=== PATIENT | female | born 1940 | race Caucasian/White ===

== ENCOUNTER → 2017-08-17 | Outpatient (CLI) | payer MEDICARE, BC ==
[~2017-08-17] MED LIST: ACET325; ACET325 PO; ACET500; ALBU90OI6 INH; ALEN70 PO; AMLO10/10 PO; AMLO5 PO; ANAS1 PO; ASCORBIC ACID; ATOR10; AZIT250 PO; AZIT500 PO; BASAGLAR K100 UNIT/1 SC; BENZ100A PO; CALCAVITDA PO; CALCIT950 PO; CALMAGZIN; CARV25 PO; CARV6.25; CEPH500 PO; CIPR250 PO; CODGUAEL PO; CRANBERRY; Cleocin HCl300 MG PO; DIGO.125; DISO150; FENO54; FLUT1DIS5 INH; FURO20 PO; FURO40; FURO40 PO; GLIP10; GLIP5; GLIP5ER; GLUC500 PO; GLUCHON; HYDMOR2; IBUP800 PO; INSLI100I; INSU100I6 SC; INSULANI; INSULANI SUBQ; INSULANPEN; K-TAB ER20 MEQ PO; Keflex500 MG PO; LANOXIN125 MCG PO; LISI20; LOPE2C PO; LOPE2EL; LOSA50 PO; LOSARTAN POTAS100 MG PO; METF850; Macrobid 100 M100 MG PO; OMEPRAZOLE MAGN20 MG PO; OXYACE5T PO; POTASSIUM OTC 99MG; POTCHL10ER PO; RISE35 PO; RISE5 PO; SIMV40 PO; SPIR25; SULTRIDS PO; Simvastatin40 MG PO; TIOT18 INH; TRAM50 PO; Ultram50 MG PO; VALS80; VERA240ER; WARF3 PO; WARF4; WARF6; XARELTO20 MG PO; Zithromax250 MG PO; [UNRECOGNIZED DRUG - OTHER]
== END ==
LOC: LAB EV 14:54
DX: R10.2 Pelvic and perineal pain (principal)
CPT/HCPCS: 87070; 87077; 87186; 87205

== ENCOUNTER → 2017-09-28 | Outpatient (CLI) | payer MEDICARE, BC | END | disposition home or self-care (01) | LOC: LAB EV 12:17 | DX: R30.0 Dysuria (principal) | CPT/HCPCS: 87077; 87086; 87186 ==

== ENCOUNTER 2018-01-17 09:38 | Emergency (ER) | payer MEDICARE, BC ==
[~2018-01-17] VITALS: Ht 160 cm; Wt 108.9 kg
[~2018-01-17 09:38] MED LIST changes: -ACET325 PO; -BASAGLAR K100 UNIT/1 SC; -POTCHL10ER PO
[2018-01-17 11:34] LABS: BASOPHILS ABSOLUTE AUTO 0.02 K/mm3 (0.00-0.23); BASOPHILS PERCENT AUTO 0 % (0-2); EOSINOPHILS PERCENT AUTO 3 % (0-6); Hematocrit 41.5 % (33.0-51.0); IMMATURE GRAN ABSOLUTE AUTO 0.07 K/mm3 (0.00-0.10); IMMATURE GRAN PERCENT AUTO 1 % (0-1); LYMPHOCYTES PERCENT AUTO 20 % (21-46); MONOCYTES ABSOLUTE AUTO 0.68 K/mm3 (0.16-1.47); MONOCYTES PERCENT AUTO 11 % (4-13); Mean Corpuscular HGB 33.4 pg (26.0-34.0); Mean Corpuscular HGB Conc 33.7 g/dL (31.5-36.5); Mean Corpuscular Volume 99 fL (80-100); Mean Platelet Volume 9.6 fL (9.1-12.4); NEUTROPHILS ABSOLUTE AUTO 4.15 K/mm3 (1.96-9.15); NEUTROPHILS PERCENT AUTO 65 % (41-73); Platelet Count 217 K/mm3 (150-400); RDW Coefficient Variation 12.4 % (11.7-14.2); RDW Standard Deviation 45.2 fL (35.1-46.3); Red Blood Cell Count 4.19 M/mm3 (3.80-5.20); White Blood Cell Count 6.42 K/mm3 (4.00-11.30)
[2018-01-17 11:50] LABS: Albumin, Blood 3.4 g/dL (3.4-5.0); Albumin/Globulin Ratio 0.8 (0.8-1.8); Bilirubin, Total 0.7 mg/dL (0.1-1.0); Bun/Creatinine Ratio 20.6 (12.0-20.0); Calcium, Blood 8.9 mg/dL (8.5-10.1); Creatinine, Blood 1.07 mg/dL (0.40-1.00); Globulin, Blood 4.2 g/dL (2.2-4.0); Potassium, Blood 4.4 mmol/L (3.5-5.5); Total Protein, Blood 7.6 g/dL (6.4-8.2)
[2018-01-17] MEDS ORDERED: POTCHL10ER PO (14:00)
[2018-01-17] MEDS ORDERED: FURO20 PO (14:02)
[2018-01-17] MEDS ORDERED: ACET325 PO (14:03)
[2018-01-17] MEDS ORDERED: BASAGLAR K100 UNIT/1 SC (14:09)
[2018-01-17 14:12] LABS: Source, Urine Clean Catch
[2018-01-17 14:20] LABS: Bilirubin, Urine Neg (Neg); Blood, Urine 2+ (Neg); Glucose Qualitative, Urine Neg (Neg); Ketones, Urine 2+ (Neg); Leukocyte Esterase, Urine 2+ (Neg); Nitrite, Urine Pos (Neg); Protein, Urine 1+ (Neg); Specific Gravity, Urine 1.015 (1.003-1.022); Urobilinogen, Urine NORM (Normal)
[2018-01-17 14:31] LABS: Appearance, Urine Clear (Clear); Color, Urine Yellow (P-Yellow)
[2018-01-17 14:35] LABS: Bacteria Mod /hpf; Squamous Epithelial Cells Few /hpf (Few); White Blood Cells, Urine 50-100 /hpf (0-5)
[2018-01-17 15:44] LABS: Adenovirus F 40/41 Not Detected (NOT DETECT); Astrovirus Not Detected (NOT DETECT); Cryptosporidium Not Detected (NOT DETECT); Cyclospora Cayetanensis Not Detected (NOT DETECT); E. Coli O157 Not Detected (NOT DETECT); Entamoeba Histolytica Not Detected (NOT DETECT); Enteroaggregative E. coli-EAEC Not Detected (NOT DETECT); Enteropathogenic E. coli-EPEC Not Detected (NOT DETECT); Enterotoxigenic E. coli-ETEC Not Detected (NOT DETECT); Giardia Lamblia Not Detected (NOT DETECT); Norovirus GI/GII Not Detected (NOT DETECT); Plesiomonas Shigelloides Not Detected (NOT DETECT); Rotavirus A Not Detected (NOT DETECT); Salmonella Sp Not Detected (NOT DETECT); Sapovirus Not Detected (NOT DETECT); Shiga Toxin-prod E. coli-STEC Not Detected (NOT DETECT); Shigella/Enteroin E. coli-EIEC Not Detected (NOT DETECT); Vibrio Cholerae Not Detected (NOT DETECT); Vibrio Sp Not Detected (NOT DETECT); Yersinia Enterocolitica Not Detected (NOT DETECT)
[2018-01-17 17:49] LABS: Campylobacter Sp Detected (NOT DETECT)
[2018-01-17] MEDS ORDERED: Zithromax250 MG PO (17:55)
== END 2018-01-17 18:29 | disposition home or self-care (01) ==
LOC: ER 09:38
PROVIDERS: Emergency Medicine; Internal Medicine
DX: A04.5 Campylobacter enteritis (principal); Z88.8 Allergy status to other drugs, medicaments and biological substances; Z91.048 Other nonmedicinal substance allergy status; Z88.5 Allergy status to narcotic agent; Z88.0 Allergy status to penicillin; Z88.2 Allergy status to sulfonamides; Z79.899 Other long term (current) drug therapy; Z79.4 Long term (current) use of insulin; E11.9 Type 2 diabetes mellitus without complications; I48.91 Unspecified atrial fibrillation; I11.0 Hypertensive heart disease with heart failure; I50.32 Chronic diastolic (congestive) heart failure; J45.909 Unspecified asthma, uncomplicated; J44.9 Chronic obstructive pulmonary disease, unspecified; E78.5 Hyperlipidemia, unspecified; Z87.891 Personal history of nicotine dependence
CPT/HCPCS: 36415; 80053; 81001; 83690; 85025; 87077; 87086; 87186; 87507; 99283

== ENCOUNTER → 2018-08-15 | Outpatient (CLI) | payer MEDICARE, BC ==
[~2018-08-15] MED LIST changes: +ACET325 PO; +BASAGLAR K100 UNIT/1 SC; +POTCHL10ER PO
== END ==
LOC: LAB EV 14:32 → LAB SHORT 14:32
DX: N39.0 Urinary tract infection, site not specified (principal)
CPT/HCPCS: 87077; 87086; 87186

== ENCOUNTER → 2018-10-06 | Outpatient (CLI) | payer MEDICARE, BC | END | disposition home or self-care (01) | LOC: LAB SHORT 07:25 → PLD 07:25 | DX: C44.622 Squamous cell carcinoma of skin of right upper limb, including shoulder (principal) | CPT/HCPCS: 88305 ==

== ENCOUNTER → 2018-11-02 | Outpatient (CLI) | payer MEDICARE, BC | END | disposition home or self-care (01) | LOC: PLD 14:10 → LAB SHORT 14:10 | DX: C44.622 Squamous cell carcinoma of skin of right upper limb, including shoulder (principal) | CPT/HCPCS: 88305 ==

== ENCOUNTER → 2018-12-14 | Outpatient (CLI) | payer MEDICARE, BC | END | disposition home or self-care (01) | LOC: LAB SHORT 13:16 → LAB EV 13:16 | DX: R32 Unspecified urinary incontinence (principal) | CPT/HCPCS: 87077; 87086; 87186 ==

== ENCOUNTER → 2019-01-24 | Outpatient (CLI) | payer MEDICARE, BC | END | disposition home or self-care (01) | LOC: LAB SHORT 12:08 → PLD 12:08 | DX: D48.5 Neoplasm of uncertain behavior of skin (principal) | CPT/HCPCS: 88305 ==

== ENCOUNTER → 2019-01-27 | Outpatient (CLI) | payer MEDICARE, BC | END | disposition home or self-care (01) | LOC: LAB EV 17:06 → LAB SHORT 17:06 | DX: R31.9 Hematuria, unspecified (principal) | CPT/HCPCS: 87077; 87086; 87186 ==

== ENCOUNTER → 2020-12-30 | Outpatient (CLI) | payer MEDICARE, BC ==
[~2020-12-30] MED LIST changes: +CEFD300 PO
== END | disposition home or self-care (01) ==
LOC: LAB 08:16 → LAB SHORT 08:16
DX: C44.319 Basal cell carcinoma of skin of other parts of face (principal); L82.1 Other seborrheic keratosis
CPT/HCPCS: 88305

== ENCOUNTER → 2021-02-10 | Outpatient (CLI) | payer MEDICARE, BC | LOC: LAB 07:24 → LAB SHORT 07:24 | DX: C44.310 Basal cell carcinoma of skin of unspecified parts of face (principal); C44.319 Basal cell carcinoma of skin of other parts of face | CPT/HCPCS: 88305 ==

== ENCOUNTER → 2021-04-07 | Outpatient (CLI) | payer MEDICARE, BC | END | disposition home or self-care (01) | LOC: LAB SHORT 07:55 | DX: C44.319 Basal cell carcinoma of skin of other parts of face (principal); L90.5 Scar conditions and fibrosis of skin | CPT/HCPCS: 88305 ==

== ENCOUNTER 2021-10-21 14:42 | Emergency (ER) | payer MEDICARE, BC ==
[~2021-10-21] VITALS: Ht 154.9 cm; Wt 99.8 kg
[2021-10-21 15:24] LABS: BASOPHILS ABSOLUTE AUTO 0.03 K/mm3 (0.00-0.23); BASOPHILS PERCENT AUTO 0 % (0-2); EOSINOPHILS PERCENT AUTO 1 % (0-6); Hematocrit 49.8 % (33.0-51.0); Hemoglobin 15.5 g/dL (11.5-16.0); IMMATURE GRAN ABSOLUTE AUTO 0.02 K/mm3 (0.00-0.10); IMMATURE GRAN PERCENT AUTO 0 % (0-1); LYMPHOCYTES ABSOLUTE AUTO 1.02 K/mm3 (0.84-5.20); LYMPHOCYTES PERCENT AUTO 15 % (21-46); MONOCYTES ABSOLUTE AUTO 0.43 K/mm3 (0.16-1.47); MONOCYTES PERCENT AUTO 6 % (4-13); Mean Corpuscular HGB 32.6 pg (26.0-34.0); Mean Corpuscular HGB Conc 31.1 g/dL (31.5-36.5); Mean Corpuscular Volume 105 fL (80-100); Mean Platelet Volume 9.6 fL (9.1-12.4); NEUTROPHILS PERCENT AUTO 77 % (41-73); Platelet Count 174 K/mm3 (150-400); RDW Coefficient Variation 13.5 % (11.7-14.2); Red Blood Cell Count 4.75 M/mm3 (3.80-5.20)
[2021-10-21 15:46] LABS: Base Excess Venous 3.5 mmol/L; Bicarbonate Venous 27.7 mmol/L (24.0-30.0); PCO2 Venous 36.3 mmHg (38-42); pH Blood Venous 7.48 (7.34-7.37)
[2021-10-21 16:00] LABS: Albumin, Blood 3.1 g/dL (3.4-5.0); Albumin/Globulin Ratio 0.8 (0.8-1.8); Beta-hydroxybutyrate 3.1 mg/dL (0.2-2.8); Bilirubin, Total 0.6 mg/dL (0.1-1.0); Bun/Creatinine Ratio 25.8 (12.0-20.0); Calcium, Blood 9.4 mg/dL (8.5-10.1); Creatinine, Blood 0.93 mg/dL (0.40-1.00); Potassium, Blood 4.2 mmol/L (3.5-5.5); Total Protein, Blood 7.1 g/dL (6.4-8.2)
[2021-10-21 18:07] LABS: Source, Urine Clean Catch
[2021-10-21 18:10] LABS: Bilirubin, Urine Neg (Neg); Blood, Urine 5+ (Neg); Glucose Qualitative, Urine 3+ (Neg); Ketones, Urine Neg (Neg); Leukocyte Esterase, Urine 3+ (Neg); Nitrite, Urine Pos (Neg); Protein, Urine 2+ (Neg); Specific Gravity, Urine 1.015 (1.003-1.022); Urobilinogen, Urine NORM (Normal)
[2021-10-21 18:15] LABS: Appearance, Urine Hazy (Clear); Color, Urine Pale Yellow (P-Yellow)
[2021-10-21 18:18] LABS: Bacteria Many /hpf; Red Blood Cells, Urine 25-50 /hpf (0-2); Squamous Epithelial Cells Few /hpf (Few)
[2021-10-21 18:19] LABS: Mucus Light (0-Heavy); Yeast/Fungi Urine Rare /hpf
[2021-10-21] MEDS ORDERED: CEFD300 PO (18:34)
== END 2021-10-21 20:08 | disposition home or self-care (01) ==
LOC: ER 14:42
PROVIDERS: Physician Assistant
DX: E11.10 Type 2 diabetes mellitus with ketoacidosis without coma (principal); E11.65 Type 2 diabetes mellitus with hyperglycemia; N39.0 Urinary tract infection, site not specified; I11.0 Hypertensive heart disease with heart failure; I50.32 Chronic diastolic (congestive) heart failure; I48.91 Unspecified atrial fibrillation; E11.9 Type 2 diabetes mellitus without complications; E78.5 Hyperlipidemia, unspecified; J44.9 Chronic obstructive pulmonary disease, unspecified; Z87.891 Personal history of nicotine dependence; Z88.8 Allergy status to other drugs, medicaments and biological substances; Z91.048 Other nonmedicinal substance allergy status; Z88.0 Allergy status to penicillin; Z88.5 Allergy status to narcotic agent; Z88.2 Allergy status to sulfonamides; Z79.899 Other long term (current) drug therapy; Z79.4 Long term (current) use of insulin
CPT/HCPCS: 36415; 80053; 81001; 82010; 82803; 85025; 87077; 87086; 87186; 96374; 99284-25; J0696

== ENCOUNTER 2022-08-09 10:11 | Inpatient (IN) | payer MEDICARE, BC ==
[~2022-08-09] VITALS: Ht 154.9 cm; Wt 93.6 kg
[~2022-08-09 10:11] MED LIST changes: -INSU100I6 SC; +NOVOLOG FL100 UNIT/3 SC
[2022-08-09 11:21] LABS: Source, Urine Straight Cath
[2022-08-09 11:33] LABS: Appearance, Urine Cloudy (Clear); Bilirubin, Urine Neg (Neg); Blood, Urine 5+ (Neg); Color, Urine Yellow (P-Yellow); Glucose Qualitative, Urine 2+ (Neg); Ketones, Urine Neg (Neg); Leukocyte Esterase, Urine 3+ (Neg); Nitrite, Urine Neg (Neg); Protein, Urine 3+ (Neg); Urobilinogen, Urine NORM (Normal)
[2022-08-09 12:12] LABS: Bacteria Mod /hpf; Mucus Light (0-Heavy); Red Blood Cells, Urine TNTC /hpf (0-2); Squamous Epithelial Cells Few /hpf (Few); White Blood Cells, Urine TNTC /hpf (0-5)
[2022-08-09 12:34] LABS: C-REACTIVE PROTEIN, EXT RANGE 16.7 mg/dL (0.000-0.300)
[2022-08-09 12:36] LABS: Albumin, Blood 2.7 g/dL (3.4-5.0); Albumin/Globulin Ratio 0.6 (0.8-1.8); Bilirubin, Total 0.6 mg/dL (0.1-1.0); Bun/Creatinine Ratio 39.7 (12.0-20.0); Calcium, Blood 9.3 mg/dL (8.5-10.1); Creatinine, Blood 1.56 mg/dL (0.40-1.00); Globulin, Blood 4.2 g/dL (2.2-4.0); Potassium, Blood 5.1 mmol/L (3.5-5.5); Total Protein, Blood 6.9 g/dL (6.4-8.2)
[2022-08-09 12:42] LABS: BASOPHILS ABSOLUTE AUTO 0.03 K/mm3 (0.00-0.23); BASOPHILS PERCENT AUTO 0 % (0-2); EOSINOPHILS ABSOLUTE AUTO 0.02 K/mm3 (0.00-0.68); EOSINOPHILS PERCENT AUTO 0 % (0-6); Hematocrit 49.9 % (33.0-51.0); Hemoglobin 15.7 g/dL (11.5-16.0); IMMATURE GRAN ABSOLUTE AUTO 0.15 K/mm3 (0.00-0.10); IMMATURE GRAN PERCENT AUTO 1 % (0-1); LYMPHOCYTES ABSOLUTE AUTO 0.44 K/mm3 (0.84-5.20); LYMPHOCYTES PERCENT AUTO 4 % (21-46); MONOCYTES ABSOLUTE AUTO 0.53 K/mm3 (0.16-1.47); MONOCYTES PERCENT AUTO 4 % (4-13); Mean Corpuscular HGB Conc 31.5 g/dL (31.5-36.5); Mean Corpuscular Volume 99 fL (80-100); Mean Platelet Volume 10.7 fL (9.1-12.4); NEUTROPHILS ABSOLUTE AUTO 10.81 K/mm3 (1.96-9.15); NEUTROPHILS PERCENT AUTO 90 % (41-73); NRBC ABSOLUTE 0.07 K/mm3 (0.00-0.02); NRBC Auto 0.6 /100 WBC (0.0-0.2); Platelet Count 115 K/mm3 (150-400); RDW Coefficient Variation 14.3 % (11.7-14.2); RDW Standard Deviation 50.5 fL (35.1-46.3); Red Blood Cell Count 5.06 M/mm3 (3.80-5.20); White Blood Cell Count 11.98 K/mm3 (4.00-11.30)
--- NOTE | 2022-08-09 18:56 | NUR ---
ADMISSION/SHIFT SUMMARY: PT ADMITTED TO PCU AT APPROX 1620, ARRIVES A&Ox4, ANSWERS QUESTIONS APPROPRIATELY, COOPERATIVE W/CARE. O2 SATS >92% ON RA, DENIES SOB. AFIB ON MONITOR W/RATE 110s-120s, CARDIZEM INFUSING AT 10MG/HR, PT DENIES CHEST PAIN/PRESSURE. PT REPORTS INCONTINENCE AT BASELINE, ATTENDS IN PLACE AND WILL BE CHANGED NEEDED. PT WITH EXTENSIVE WOUNDS TO BLE AND L HEEL. WOUNDS HAVE BEEN CLEANED AND DRESSED, PICTURES TAKEN, WOUND CONSULTATION ORDERED. WILL CONTINUE TO MONITOR AND TREAT ACCORDINGLY UNTIL CHANGE OF SHIFT.
--- NOTE | 2022-08-10 05:52 | NUR ---
PT RESTED INTERMITTENTLY, PURWICK PLACED AND DID WELL, VSS, AFEBRILE, CARDIZEM AT 10 AND PT AFIB ON TELE IN 80'S-90'S, LABS PENDING
[2022-08-10 07:07] LABS: Albumin, Blood 2.1 g/dL (3.4-5.0); Anion Gap 9 mmol/L (6-16); Blood Urea Nitrogen 53 mg/dL (8-24); Bun/Creatinine Ratio 44.5 (12.0-20.0); CO2, Blood 20 mmol/L (21-32); Calcium, Blood 8.5 mg/dL (8.5-10.1); Chloride, Blood 108 mmol/L (98-108); Creatinine, Blood 1.19 mg/dL (0.40-1.00); Glomerular Filtration Rate 46 (60-); Glucose, Blood 176 mg/dL (70-99); Phosphorus, Blood 2.8 mg/dL (2.5-4.9); Sodium, Blood 137 mmol/L (136-145); Vancomycin, Random 10.3 ug/mL
--- NOTE | 2022-08-10 10:15 | NUR ---
UPDATE HR SUSTAINING 80'S. CARDIZEM GTT DISCONTINUED AT THIS TIME. BP STABLE. WILL CONTINUE TO MONITOR
[2022-08-10 11:14] LABS: BASOPHILS ABSOLUTE AUTO 0.01 K/mm3 (0.00-0.23); BASOPHILS PERCENT AUTO 0 % (0-2); EOSINOPHILS PERCENT AUTO 1 % (0-6); Hematocrit 41.4 % (33.0-51.0); Hemoglobin 13.2 g/dL (11.5-16.0); IMMATURE GRAN ABSOLUTE AUTO 0.08 K/mm3 (0.00-0.10); IMMATURE GRAN PERCENT AUTO 1 % (0-1); LYMPHOCYTES ABSOLUTE AUTO 0.49 K/mm3 (0.84-5.20); LYMPHOCYTES PERCENT AUTO 4 % (21-46); MONOCYTES ABSOLUTE AUTO 0.51 K/mm3 (0.16-1.47); MONOCYTES PERCENT AUTO 5 % (4-13); Mean Corpuscular HGB 31.6 pg (26.0-34.0); Mean Corpuscular HGB Conc 31.9 g/dL (31.5-36.5); Mean Corpuscular Volume 99 fL (80-100); Mean Platelet Volume 11.4 fL (9.1-12.4); NEUTROPHILS PERCENT AUTO 89 % (41-73); NRBC ABSOLUTE 0.05 K/mm3 (0.00-0.02); NRBC Auto 0.5 /100 WBC (0.0-0.2); Platelet Count 99 K/mm3 (150-400); RDW Coefficient Variation 14.4 % (11.7-14.2); RDW Standard Deviation 51.1 fL (35.1-46.3); Red Blood Cell Count 4.18 M/mm3 (3.80-5.20); White Blood Cell Count 11.09 K/mm3 (4.00-11.30)
--- NOTE | 2022-08-10 16:31 | NUR ---
UPDATE PT REMAINS ALERT AND ORIENTED. HR CONTINUES TO BE AFIB WITH A RATE IN THE 70'S. BP STABLE. O2 SATS REMAIN ABOVE 90% ON RA. PT COMPLAINS OF PAIN TO THE RIGHT HEEL. MEDICATED PER EMAR. PT AWAITING WOUND CARE CONSULT FOR EXTENSIVE WOUNDS. STATUS CHANGED TO MEDICAL. REPORT GIVEN TO BRANDON REDDY. PT TAKEN UP BY BED
--- NOTE | 2022-08-10 17:06 | NUR ---
PT UP FROM PCU 18. PT ON TELE, COMFIRMED WITH ARABELLA GUARDADO 80'S. PT ALERT AND ORIENTED, CALLS APPROPRIATELY. WOUNDS TO BLE, BUTT, ALREADY DOCUMENTED, PENDING WOUND CARE CONSULT. PT ON RA, SPO2 > 92%. WILL CONTINUE TO MONITOR. CALL LIGHT WITHIN REACH.
[2022-08-11 06:23] LABS: Bun/Creatinine Ratio 40.7 (12.0-20.0); Calcium, Blood 8.8 mg/dL (8.5-10.1); Creatinine, Blood 1.4 mg/dL (0.40-1.00); Potassium, Blood 4.5 mmol/L (3.5-5.5)
--- NOTE | 2022-08-11 06:33 | NUR ---
END OF SHIFT REPORT Patient had a pleasant night with no acute events. Wound care done bilateral legs, cleaned with NS, patted dry, xeroform gauze dressing applied, ABD dressing applied and secured with roling gauze and wrapped with compression dressing. Wound care done bilateral buttocks and covered with mepilex. Interminent wheezing through the shift, hx of asthma. Cleared with breathing TX. Pericare done, bed linean and purewick changed.
[2022-08-11 09:26] LABS: BASOPHILS ABSOLUTE AUTO 0.02 K/mm3 (0.00-0.23); BASOPHILS PERCENT AUTO 0 % (0-2); EOSINOPHILS ABSOLUTE AUTO 0.08 K/mm3 (0.00-0.68); EOSINOPHILS PERCENT AUTO 1 % (0-6); Hematocrit 42.7 % (33.0-51.0); Hemoglobin 13.6 g/dL (11.5-16.0); IMMATURE GRAN ABSOLUTE AUTO 0.07 K/mm3 (0.00-0.10); IMMATURE GRAN PERCENT AUTO 1 % (0-1); LYMPHOCYTES ABSOLUTE AUTO 0.69 K/mm3 (0.84-5.20); LYMPHOCYTES PERCENT AUTO 7 % (21-46); MONOCYTES ABSOLUTE AUTO 0.48 K/mm3 (0.16-1.47); MONOCYTES PERCENT AUTO 5 % (4-13); Mean Corpuscular HGB 31.3 pg (26.0-34.0); Mean Corpuscular HGB Conc 31.9 g/dL (31.5-36.5); Mean Corpuscular Volume 98 fL (80-100); Mean Platelet Volume 10.8 fL (9.1-12.4); NEUTROPHILS ABSOLUTE AUTO 9.13 K/mm3 (1.96-9.15); NEUTROPHILS PERCENT AUTO 87 % (41-73); NRBC ABSOLUTE 0.06 K/mm3 (0.00-0.02); NRBC Auto 0.6 /100 WBC (0.0-0.2); Platelet Count 89 K/mm3 (150-400); RDW Coefficient Variation 14.5 % (11.7-14.2); RDW Standard Deviation 51.5 fL (35.1-46.3); Red Blood Cell Count 4.34 M/mm3 (3.80-5.20); White Blood Cell Count 10.47 K/mm3 (4.00-11.30)
[2022-08-11 10:52] LABS: Anti-Xa UFH, PHA Monitoring <0.10 IU/mL; International Normalized Ratio 1.17; Prothrombin Time Results 12.2 Sec (9.7-11.5)
--- NOTE | 2022-08-11 17:05 | NUR ---
WOUND CARE ON INITIAL ASSESSMENT LLE APPEARS ISCHEMIC. LLE IS COLD TO TOUCH, BLUE-PURPLE WITH NONPALPABLE PULSES. PRIMARY RN AND MD NOTIFIED. IR AND PODIATRY CONSULTS ORDERED. BLE LEFT DESKIDDING MACHINE OPERATOR FOR FURTHER ASSESSMENT.
--- NOTE | 2022-08-11 18:31 | NUR ---
SHIFT SUMMARY PATIENT IS ALERT AND ORIENTED BUT CONFUSED. PATIENTS LEFT LOWER EXTREMITY IS COOL TO TOUCH AND HAS MULTIPLE WOUNDS THAT ARE BEING FOLLOWED BY WOUND CARE, IR, AND PODIATRY. PATIENT IS PLANNING ON HAVING AN ANGIO DONE TONIGHT AND WILL BE TRANSFERRING TO PCU AFTERWARDS. PATIENT HAS COMPLAINED OF PAIN AND MEDICATED PER EMAR. PATIENT HAS NOT COMPLAINED OF NAUSEA, SOB OR VOMITTING THIS SHIFT. VITAL SIGNS REVIEWED. BED IN LOWEST AND LOCKED POSITION. CALL LIGHT IN PLACE. WILL MONITOR UNTIL SHIFT CHANGE.
--- NOTE | 2022-08-11 23:38 | NUR ---
ASSUMED CARE NOTE: ASSUMED CARE OF PT AT 2119, PT IS ALERT AND ORIENTED TO SELF, FAMILY/PLACE/YEAR AND FOLLOWING COMMANDS. PT DISORIENTED TO TIME/MONTH. PT C/O PAIN TO BLE, 25MCG OF FENTANYL GIVEN PER SEP. AFTER FENTANYL ADMIN, PT BREATHING BECAME SHALLOW, SpO2 DROPPED TO 70%, PT PLACED ON NON-REABREATHER AT 10L, SpO2 ABOVE 90% FENTANYL EFFECTS LASTED FOR 15 MINUTES, PT NOW CRYING, STATING SHE IS IN PAIN 05/04. PT NOW ON 10l VIA OXYMIZER. SHEATH IN PLACE TO RIGHT GROIN , HEPARIN INFUSING AT 6ML/HR PER ORDER, TPA ALSO INFUSING AT 1MG/HR TO SHEATH ORDERED. RIGHT PEDAL PULSE FOUND WITH DOPPLER, NO PULSE NOTED TO LEFT POST-TIBIAL OR PEDAL. PT IN AFIB WITH HR IN THE 90'S. PUREWICK IN PLACE TO SUCTION. TO LOW 100'S, BP STABLE.
--- NOTE | 2022-08-12 00:57 | NUR ---
UPDATE: PT YELLING OUT IN PAIN, STS " HELP ME OR LET ME , I SHOULD HAVE NEVER AGREED TO THIS" PT STS SHE IS HAVING 10/10 PAIN TO BLE. CALLED REGARDING PAIN MEDICATION, ORDERS FOR DILAUDID X 4 DOSES GIVEN. BILATERAL PULSES CANNOT BE FOUND TO BLE, MADE AWARE NO NEW ORDERS GIVEN.
[2022-08-12 04:21] LABS: Source, Urine Foley catheter
[2022-08-12 04:23] LABS: Bilirubin, Urine Neg (Neg); Blood, Urine 5+ (Neg); Glucose Qualitative, Urine Neg (Neg); Ketones, Urine Neg (Neg); Leukocyte Esterase, Urine 3+ (Neg); Nitrite, Urine Neg (Neg); Protein, Urine 2+ (Neg); Specific Gravity, Urine 1.015 (1.003-1.022); Urobilinogen, Urine NORM (Normal)
[2022-08-12 04:44] LABS: Appearance, Urine Hazy (Clear); Color, Urine Yellow (P-Yellow)
[2022-08-12 04:46] LABS: Red Blood Cells, Urine 25-50 /hpf (0-2)
[2022-08-12 04:47] LABS: Bacteria Many /hpf; Granular Casts 0-2 /lpf (0); Hyaline Casts 0-2 /lpf (0-2); Mucus Light (0-Heavy); Squamous Epithelial Cells Few /hpf (Few); White Blood Cells, Urine TNTC /hpf (0-5)
[2022-08-12 05:36] LABS: BASOPHILS ABSOLUTE AUTO 0.05 K/mm3 (0.00-0.23); BASOPHILS PERCENT AUTO 0 % (0-2); EOSINOPHILS ABSOLUTE AUTO 0.04 K/mm3 (0.00-0.68); EOSINOPHILS PERCENT AUTO 0 % (0-6); Hematocrit 42.5 % (33.0-51.0); Hemoglobin 13.2 g/dL (11.5-16.0); IMMATURE GRAN ABSOLUTE AUTO 0.15 K/mm3 (0.00-0.10); IMMATURE GRAN PERCENT AUTO 1 % (0-1); LYMPHOCYTES ABSOLUTE AUTO 0.51 K/mm3 (0.84-5.20); LYMPHOCYTES PERCENT AUTO 3 % (21-46); MONOCYTES ABSOLUTE AUTO 0.53 K/mm3 (0.16-1.47); MONOCYTES PERCENT AUTO 3 % (4-13); Mean Corpuscular HGB 31.3 pg (26.0-34.0); Mean Corpuscular HGB Conc 31.1 g/dL (31.5-36.5); Mean Corpuscular Volume 101 fL (80-100); NEUTROPHILS ABSOLUTE AUTO 14.57 K/mm3 (1.96-9.15); NEUTROPHILS PERCENT AUTO 92 % (41-73); NRBC ABSOLUTE 0.13 K/mm3 (0.00-0.02); NRBC Auto 0.8 /100 WBC (0.0-0.2); Platelet Count 105 K/mm3 (150-400); RDW Coefficient Variation 14.5 % (11.7-14.2); RDW Standard Deviation 52.7 fL (35.1-46.3); Red Blood Cell Count 4.22 M/mm3 (3.80-5.20); White Blood Cell Count 15.85 K/mm3 (4.00-11.30)
[2022-08-12 05:47] LABS: Albumin, Blood 1.9 g/dL (3.4-5.0); Albumin/Globulin Ratio 0.6 (0.8-1.8); Bilirubin, Total 0.3 mg/dL (0.1-1.0); Bun/Creatinine Ratio 40.9 (12.0-20.0); Creatinine, Blood 1.32 mg/dL (0.40-1.00); Globulin, Blood 3.3 g/dL (2.2-4.0); Potassium, Blood 4.7 mmol/L (3.5-5.5); Total Protein, Blood 5.2 g/dL (6.4-8.2)
--- NOTE | 2022-08-12 05:47 | NUR ---
SHIFT SUMMARY: SEE PREBIOUS NOTES PT DROWSY, OPENS EYES TO VERBAL STIMULI. PT C/O PAIN T/O SHIFT TO BLE, DILAUDID GIVEN PER MAR WITH GOOD EFFECT. PT IS CONFUSED MAMIE SENSTATION TO BLE FOR THE LAST FEW HOURS. PT REMAINS ON 8L OF 02 VIA OXYMIXER WITH SPO2 ABOVE 90% , NASAL SPO2 PROBE IN PLACE, REPOSITONED Q 1 HR, UNABLE TO USE FINGER PROBE DUE TO POOR PERFUSION. RR IN THE MID 20'S .PT HAS BEEN IN AFIB WITH HR BETWEEN 90 TO LOW 100'S. PT REMAINS AFEBRILE. BARRON PLACED DUE TO URINARY RETENTION, 300ML OF URINE OUTPUT NOTED, HAZY WITH SEDIMENT NOTED. BILATERAL SOFT WRIST RESTRAINTS IN PLACE DUE TO PT PULLING ON ESSENTIAL LINES. TPA RUNNING TO SHEATH RIGHT GROIN AT 1MG/HR VIA INFUSION EXTENSION TUBING. HEPARIN INFUSING AT 6ML/HR DIRECTLY TO SHEATH IN THE RIGHT GROIN. RIGHT GROIN INSERTION SITE IS FREE FROM OOZING, HEMATOMA. NO PULSES CAN BE FOUND VIA DOPPLER TO BLE, MD AWARE. POOR CAP REFILL TO BLE. BED AT LOWEST LEVEL, WILL CONTINUE WITH PLAN OF CARE UNTIL REPORT IS GIVEN TO ONCOMING SHIFT.
--- NOTE | 2022-08-12 07:37 | NUR ---
CARE OF PT ASSUMED AT 0700, BEDSIDE REPORT TAKEN. PT SLEEPING, AROUSES TO VOICE, ABLE TO STATE NAME, PLACE, AND . FALLS ASLEEP INBETWEEN QUESTIONS. PT SUPINE FOR ART SHEATH TO RIGHT FEM ART. CATHFLO INFUSING TO SHEATH AT 1MG/HR, HEPARIN TO SIDE PORT AT 6MLS/HR. PULSES ABSENT BILAT TO DP/PT. OPEN WOUNDS/ULCERS TO BILAT LEGS; SEE PICS. LEFT LEG WOUNDS FOUL SMELLING. PT TO RETURN TO BAG MACHINE HELPER THIS AM. BARRON CATH DRAINING PURULENT URINE. PT IN AFIB W CONTROLLED RATE; HEPARIN GTT TO RETURN TO THERAPUTIC DOSE AFTER BAG MACHINE HELPER PER PHARMACIST FOR AFIB. PT IN RESTRAINTS D/T FORGETFULNESS, OCCASIONALLY WILL PULL ON LINES,; RESTRAINTS PLACED TO KEEP PT FROM PULLING ON ART SHEATH, PT UNDERSTANDS REASONS FOR RESTRAINTS AND IS OKAY WITH THEM. PT C/O PAIN TO LEGS BUT CAN NOT GIVE NUMBER, PT SLEEPING UNLESS WOKEN UP.
[2022-08-12 07:43] LABS: Vancomycin, Trough 18.6 ug/mL (5.0-10.0)
--- NOTE | 2022-08-12 08:05 | NUR ---
DR RODRIGUEZ IN TO SEE PT, CATHFLO TO CONTINUE, PT TO GO TO DINING MANAGER THIS AM PER DR RODRIGUEZ.
--- NOTE | 2022-08-12 14:52 | NUR ---
TERMINAL GAUGER SUPERVISOR CALLED TO GIVE UPDATE AND OBTAIN ETA FOR PROCEDURE; PT REMAINS W/O PULSES BILAT DP/PT. WHITE/PALLOR INCREASING TO LEFT TOES AND UPPER PORTION OF FOOT. AREA OUTLINED W PEN. HEPARIN AND CATHFLO CONTINUE TO INFUSE. SHEATH INTACT. ESTIMATE FOR TERMINAL GAUGER SUPERVISOR GIVEN FOR 1800. PT GIVEN CHG BEDBATH, PT LOG ROLLED FOR BATH. MEPILEX CHANGED TO BUTTOCKS, AREA EXCORIATED WITH PEELING SKIN/OPEN SORES. SMALL AMT OF DRAINAGE AND BLEEDING TO AREA. WOUNDS TO LEGS UNCHANGED.
--- NOTE | 2022-08-12 16:06 | NUR ---
DR COHEN CALLED FOR HEART RATE. PT IN AFIB, RATE HAS BEEN TRENDING UP T/O SHIFT, RATE NOW BETWEEN 120-130, OCC 140'S. BP STABLE, IV LOPRESSOR TO BE ORDERED.
--- NOTE | 2022-08-12 16:33 | NUR ---
LOPRESSOR 5MG GIVEN. PT TO PACKER INSULATION; REPORT GIVEN.
--- NOTE | 2022-08-12 16:35 | NUR ---
DR FREEDMAN OFFICE CALLED REGARDING CONSULT, DR FREEDMAN WILL BE BY TO SEE PT TODAY.
--- NOTE | 2022-08-12 18:09 | NUR ---
PT BACK FROM PICKLING OPERATOR AT 1800. BEDSIDE REPORT TAKEN. ANGIOSEAL TO RIGHT GROIN STABLE; C/D/I, NO SWELLING, HEMATOMA, OR BLEEDING. PT VERY DROWSY BUT DOES AROUSE TO VOICE. HEPARIN AND CATH JAYA DISCONTINUED IN PICKLING OPERATOR. DR OTTO CALLED TO GIVE UPDATE AND DISCUSS HEP GTT; HEPARIN GTT TO BE HELD FOR NOW. PULSES CHECKED W PICKLING OPERATOR AND REMAIN ABSENT BILAT TO DP/PT. LEFT UPPER CALF BELOW KNEE IS NOW BRIGHT RED AND WARM, W GOOD CAP REFILL. LOWER EXT REMAINS COLD, PURPLE, W POOR CAP REFILL. NO CHANGES TO RIGHT LOWER EXT. PT'S DAUGHTERS AT BEDSIDE. DR FREEDMAN TO COME SEE PT SHORTLY, MARINE DRAFTER SPOKE W DR FREEDMAN, AND ORTHO CONSULT TO BE PLACED AFTER DR FREEDMAN SPEAKS W PT AND FAMILY.
--- NOTE | 2022-08-12 18:48 | NUR ---
DR FREEDMAN AT BEDSIDE, DR FREEDMAN UNABLE TO FIND PULSES BILAT. WELL. ORTHO CONSULT TO BE PLACED BY DR FREEDMAN.
--- NOTE | 2022-08-12 19:15 | NUR ---
ASSUMED CARE/COMFORT CARE I ASSUMED CARE OF THIS PATIENT AT 1915 FROM MAUREEN DOTSON. BEDSIDE REPORT COMPLETED. FAMILY AT BEDSIDE. NO GTTS CURRENTLY INF. 6LPM VIA NC PLACED IN MOUTH WITH SPO2 ABOVE 90%. JUST AFTER REPORT COMPLETED, PATIENT VERBALIZED DECISION TO FOREGO AMPUTATION AND REQUESTED COMFORT CARE TO DR. FREEDMAN. AFTER VERIFYING THAT THE PATIENT AND FAMILY UNDERSTOOD COMFORT CARE, HOSPITALIST DR. QUAN NOTIFIED AND ORDERS UPDATED.
--- NOTE | 2022-08-13 05:48 | NUR ---
SHIFT SUMMARY PATIENT SLEPT T/O SHIFT. DILAUDID 0.5MG IV X 1 ADMINISTERED AT BEGINNING OF SHIFT. PATIENT DENIED PAIN ON SUBSEQUENT ASSESSMENTS. AGITATED WHEN AWOKEN. DECLINED REPOSITIONING T/O NIGHT. NO OTHER CHANGES DURING SHIFT.
--- NOTE | 2022-08-13 07:02 | NUR ---
Assumed care of pt at 0700. Report received from Marcia Armendariz RN. Pt resting in bed comfortably. No signs of pain/anxiety.
--- NOTE | 2022-08-13 07:08 | NUR ---
Patient awoke abruptly. Calling out for help. Delirious. Reoriented pt, but unsuccessful. Asking about her car and saying "help me, I'm ill". Stated "yes" when asked if she is in pain. Medicated for pain and anxiety.
--- NOTE | 2022-08-13 10:03 | NUR ---
Spiritual Care - EOL Pt. was transitioning and EOL prayer was given. Nurses Elissa and Wing present. TOD 10:00. Will remain avialable to any family that visits.
--- NOTE | 2022-08-13 10:29 | NUR ---
Noticed that pt's HR had dropped from 120s to 60s. Pt bradypnic, cyanotic. Called pt's daughter, Negar, at 0955 to notify that pt was actively passing away. Crna notified. Jasiel and this RN in room with patient as she . TOD 1000. Negar at bedside shortly afterwards. Comfort cart in room. Per family, pt has arrangements at [facility].
--- NOTE | 2022-08-13 10:48 | NUR ---
"Spiritual Care | Family Request Pts. brother and daughter are present and welcome my visit. Daughter verbally asked if this production clerk had a chance to pray with the Pt. and I was able to confirm. Facilitated life review. The Pts. son-in-law arrived. They are waiting for some other family members to arrive. The family has requested [facility] as their home, as the Pt. had made previous arrangements. Will remain available to the family."
== END 2022-08-13 13:51 | DRG 854 ==
LOC: ER 10:11 → ICUE 14:11 → PCU 14:11 → MEDS 14:11 → PCU 16:11 → MEDS 08-10 16:18 → ICUE 08-11 21:23
PROVIDERS: Emergency Medicine; Internal Medicine; Pharmacist; Physician Assistant; ADMIT Family Medicine
PROC: 3E03329 Introduction of Other Anti-infective into Peripheral Vein, Percutaneous Approach (ICD-10-PCS; 2022-08-09)
PROC: 047L3ZZ Dilation of Left Femoral Artery, Percutaneous Approach (ICD-10-PCS; principal; 2022-08-12)
PROC: 047N3ZZ Dilation of Left Popliteal Artery, Percutaneous Approach (ICD-10-PCS; 2022-08-12)
PROC: 04CL3ZZ Extirpation of Matter from Left Femoral Artery, Percutaneous Approach (ICD-10-PCS; 2022-08-12)
PROC: 04CN3ZZ Extirpation of Matter from Left Popliteal Artery, Percutaneous Approach (ICD-10-PCS; 2022-08-12)
PROC: 04CQ3ZZ Extirpation of Matter from Left Anterior Tibial Artery, Percutaneous Approach (ICD-10-PCS; 2022-08-12)
PROC: 04CU3ZZ Extirpation of Matter from Left Peroneal Artery, Percutaneous Approach (ICD-10-PCS; 2022-08-12)
PROC: 3E05317 Introduction of Other Thrombolytic into Peripheral Artery, Percutaneous Approach (ICD-10-PCS; 2022-08-12)
DX: A41.9 Sepsis, unspecified organism (principal); E11.52 Type 2 diabetes mellitus with diabetic peripheral angiopathy with gangrene; I96 Gangrene, not elsewhere classified; N39.0 Urinary tract infection, site not specified; I13.0 Hypertensive heart and chronic kidney disease with heart failure and stage 1 through stage 4 chronic kidney disease, or unspecified chronic kidney disease; L03.115 Cellulitis of right lower limb; L03.116 Cellulitis of left lower limb; E46 Unspecified protein-calorie malnutrition; L97.215 Non-pressure chronic ulcer of right calf with muscle involvement without evidence of necrosis; Z91.199 Patient's noncompliance with other medical treatment and regimen due to unspecified reason; Z66 Do not resuscitate; Z51.5 Encounter for palliative care; Z20.822 Contact with and (suspected) exposure to COVID-19; Z28.21 Immunization not carried out because of patient refusal; I48.0 Paroxysmal atrial fibrillation; B96.20 Unspecified Escherichia coli [E. coli] as the cause of diseases classified elsewhere; R65.20 Severe sepsis without septic shock; I27.20 Pulmonary hypertension, unspecified; I87.2 Venous insufficiency (chronic) (peripheral); I50.9 Heart failure, unspecified; K58.9 Irritable bowel syndrome, unspecified; E78.5 Hyperlipidemia, unspecified; E11.621 Type 2 diabetes mellitus with foot ulcer; E11.65 Type 2 diabetes mellitus with hyperglycemia; E11.628 Type 2 diabetes mellitus with other skin complications; N18.9 Chronic kidney disease, unspecified; E11.622 Type 2 diabetes mellitus with other skin ulcer; E86.0 Dehydration; E11.22 Type 2 diabetes mellitus with diabetic chronic kidney disease; E66.9 Obesity, unspecified; Z68.37 Body mass index [BMI] 37.0-37.9, adult; Z87.891 Personal history of nicotine dependence; Z88.0 Allergy status to penicillin; Z88.2 Allergy status to sulfonamides; Z88.5 Allergy status to narcotic agent; Z88.3 Allergy status to other anti-infective agents; Z91.048 Other nonmedicinal substance allergy status; Z79.4 Long term (current) use of insulin; Z79.899 Other long term (current) drug therapy
CPT/HCPCS: 36415; 37184; 37185; 37211; 37214; 37224; 37228; 51701; 51703; 71045; 73620; 75625; 75716; 75774; 76937; 80048; 80053; 80069; 80202; 81001; 82947; 83036; 83605; 83735; 85018; 85025; 85384; 85520; 85610; 85651; 85730; 86140; 87040; 87076; 87077; 87086; 87186; 93005; 93010; 93922; 94640; 94664; 94762; 96365-59; 96366-59; 96367-59; 96368; 96376-59; 97110; 97162; 97166; 97530; 99152; 99153; 99291-25; A9270; C1725; C1751; C1757; C1760; C1769; C1887; C1894; J0692; J0696; J1170; J1644; J2250; J2405; J2997; J3010; J3370; J7030; J7040; J7050; Q9967